=== PATIENT | male | born 1960 | race Caucasian/White ===

== ENCOUNTER 2017-06-05 01:53 | Emergency (ER) | payer MEDICAID ==
[~2017-06-05] VITALS: Ht 188 cm; Wt 86.2 kg
[2017-06-05 02:04] VITALS: BP 137/85
== END 2017-06-05 03:57 | disposition left against medical advice (07) ==
LOC: ER 01:53
DX: R52 Pain, unspecified (principal); Z48.02 Encounter for removal of sutures; Z53.21 Procedure and treatment not carried out due to patient leaving prior to being seen by health care provider